=== PATIENT | female | born 1980 | race Caucasian/White ===

== ENCOUNTER → 2016-09-14 | Outpatient (CLI) | payer OTHER ==
[~2016-09-14] MED LIST: AMIT10TA6 PO; ASPI81TA28 PO; B-CO1TAB29 PO; CETI10TA84 PO; COCO1OIL2 PO; COLC0.6T54 PO; GABA1CAP4 PO; METO25TA56 PO; OMEG1CAP81 PO
[2016-09-14 18:19] LABS: BASO % 0.3 %; BASO ABS # 0.02 K/uL (0-0.2); COMPLETE YES; HEMATOCRIT 36.9 % (37-47); IG% 0.5 %; LYMPH % 37.5 %; LYMPH ABS # 2.47 K/uL (1.2-3.4); MEAN CORPUSCULAR HEMOGLOBIN 31.7 pg (25-34); MEAN CORPUSCULAR HGB CONC 35.2 g/dl (32-36); MEAN PLATELET VOLUME 9.3 fL (7.4-10.4); MONO % 9.1 %; NEUT % 50.6 %; PLATELET COUNT 306 K/uL (130-400); WHITE BLOOD COUNT 6.59 K/uL (4.8-10.8)
[2016-09-14 18:46] LABS: THYROID STIMULATING HORMONE 0.985 uIu/ml (0.300-4.500)
== END | disposition home or self-care (01) ==
LOC: C.LAB 17:58
PROVIDERS: ATTEND Family Medicine
DX: R61 Generalized hyperhidrosis (principal)

== ENCOUNTER 2017-04-17 08:06 | Emergency (ER) | payer OTHER ==
[~2017-04-17] VITALS: Ht 165.1 cm; Wt 90.1 kg
[~2017-04-17 08:06] MED LIST changes: -ASPI81TA28 PO
[2017-04-17 08:14] VITALS: BP 135/92; PULSE 82; TEMP 36.6; O2SAT 98; Ht 165.1 cm; Wt 90.1 kg
[2017-04-17] MEDS ORDERED: ASPI81TA28 PO (08:41)
--- NOTE | 2017-04-17 08:55 | EMERGENCY ROOM VISIT NOTE ---
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 Patient reports that she was checking a needle box, when she was splashed by fluid from IV tubing. Source patient is unknown, patient has no idea what could have been in the tubing or in the fluid. Fluid splashed on her lips, and she believes in her eyes and generally on her face. Her face is intact, without any open wounds. She cleansed her mouth with rubbing alcohol, and rinsed her eyes with saline. 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 Patient has been vaccinated against hepatitis B and is immune. Her tetanus is current, however she did have a generalized particle rash after receiving her most recent tetanus vaccination. Patient has had a work-related needlestick injury in the past. Review of Systems: Review of systems as per HPI. All other systems reviewed were negative. At least 6 systems reviewed. Past Medical History: Electronic medical records are reviewed and summarized as above/below. See Problem List. Social History: and lives at home with her family. Employed as an RN at our facility. Never smoker. Physical Examination: Vital signs reviewed as per nursing notes. GENERAL: Patient is a well-appearing 36-year-old white female who is awake and alert and in no acute distress. EYES: Pupils equal, round, reactive to light. EOMs intact without nystagmus. Sclera are anicteric. INTEGUMENTARY: No lesions or rash, normal skin turgor. NEUROLOGICAL: Alert, oriented, and cooperative. Sensation and strength grossly intact. ED Course Patient was seen and examined as above. She sustained a splash injury to the face including potentially eyes and mouth (mucous membranes) with an unknown fluid. Initial cleansing management was appropriate. She has no eye complaints presently. Informed consent for HIV and post exposure testing was obtained, and consents and all other paperwork were completed. The patient had no questions, and was comfortable with the treatment plan, and was instructed to follow up with [facility] for review of her laboratory results. Exposure does not indicate post exposure prophylaxis initiation. Problem List Medical Problems: (1) Anticoagulated by anticoagulation treatment Status: Resolved (2) Bronchitis Status: Resolved (3) Calf pain Status: Resolved (4) Chest pain Status: Resolved (5) Chest pain Status: Resolved (6) Chest pain Status: Resolved (7) Chest pain Status: Resolved (8) Chest pain Status: Resolved (9) Chest pain Status: Resolved (10) Chest pain on exertion Status: Resolved (11) Diabetes Status: Resolved (12) Elevated random blood glucose level Status: Resolved (13) Endometriosis Nos Status: Chronic (14) Flank pain Status: Resolved (15) Flank pain Status: Resolved (16) Flank pain Status: Resolved (17) Gestational diabetes Status: Resolved (18) H/O pulmonary embolus during Status: Resolved (19) Headache in Status: Resolved (20) History of pulmonary embolism Status: Chronic (21) Hydronephrosis Status: Resolved (22) Interstitial cystitis Status: Chronic (23) Interstitial cystitis Status: Chronic (24) Mesenteric adenitis Status: Resolved (25) Pericardial effusion Status: Resolved (26) Pleuritic chest pain Status: Resolved (27) Status: Resolved (28) Status: Resolved (29) with hydronephrosis Status: Resolved (30) Pulmonary embolism Status: Resolved (31) Pulmonary embolism Status: Resolved (32) Pulmonary embolism complicating Status: Resolved (33) Pulmonary embolism complicating Status: Resolved (34) Pyelonephritis Status: Resolved (35) Respiratory distress Status: Resolved (36) Shortness of breath Status: Resolved (37) Shortness of breath Status: Resolved (38) SOB (shortness of breath) Status: Resolved (39) Spontaneous rupture of amniotic membranes Status: Resolved (40) Spontaneous rupture of amniotic membranes Status: Resolved (41) Symptoms involving urinary system Status: Resolved (42) Symptoms involving urinary system Status: Resolved (43) UTI (lower urinary tract infection) Status: Resolved (44) UTI (lower urinary tract infection) Status: Resolved (45) UTI (urinary tract infection) Status: Resolved Surgical Problems: (1) H/O nephrostomy Status: Resolved (2) History of cholecystectomy Status: Resolved (3) History of tonsillectomy Status: Resolved (4) Hx of cholecystectomy Status: Resolved (5) Hx of cystoscopy Status: Resolved (6) Hx of nephrostomy Status: Resolved (7) Hx of tonsillectomy Status: Resolved Current/Historical Medications Scheduled Amitriptyline Hcl (Elavil), 20 TAB PO HS Aspirin (Aspirin Ec), 81 MG PO DAILY B-Complex Vitamins (Vitamin B-Complex), 1 TAB PO DAILY Cetirizine (Zyrtec), 10 MG PO DAILY Colchicine (Colchicine), 0.6 MG PO BID Gabapentin (Gabapentin), 300 MG PO QID Metoprolol Tartrate (Lopressor) (Lopressor), 12.5 MG PO DAILY Allergies Coded Allergies: Tetanus Toxoid (Verified Allergy, Intermediate, RASH X 4 WEEKS, 04/17/17) Vital Signs Date Time Temp Pulse Resp B/P (MAP) Pulse Ox O2 Delivery O2 Flow Rate FiO2 04/17/17 08:14 36.6 82 18 135/92 98 Room Air Departure Information Impression Primary Impression: Exposure to potentially hazardous body fluids Additional Impression: Work related injury Referrals No Doctor, Assigned (PCP) Patient Instructions My [facility] Additional Instructions Follow up with Employee Health for results of your blood work, and any follow up testing as indicated. Problem Qualifiers
== END 2017-04-17 09:04 | disposition home or self-care (01) ==
LOC: C.EDB 08:08 → C.EDA 09:04
DX: Z77.21 Contact with and (suspected) exposure to potentially hazardous body fluids (principal); Z92.89 Personal history of other medical treatment; Y99.0 Civilian activity done for income or pay; E11.9 Type 2 diabetes mellitus without complications; Z86.711 Personal history of pulmonary embolism; Z87.440 Personal history of urinary (tract) infections; Z90.49 Acquired absence of other specified parts of digestive tract; Z98.890 Other specified postprocedural states; Z88.8 Allergy status to other drugs, medicaments and biological substances

== ENCOUNTER 2017-05-10 11:27 | Emergency (ER) | payer OTHER ==
[~2017-05-10] VITALS: Ht 165.1 cm; Wt 91.2 kg
[~2017-05-10 11:27] MED LIST changes: +ASPI81TA28 PO; -COCO1OIL2 PO; -OMEG1CAP81 PO
[2017-05-10 11:37] VITALS: TEMP 36.9; Ht 165.1 cm; Wt 91.2 kg
[2017-05-10 12:23] LABS: MANUAL MICROSCOPIC REQUIRED? YES; REVIEW REQ? NO; SULFASALICYLIC ACID NEG (NEG); URINE APPEARANCE CLEAR (CLEAR); URINE COLOR GREEN; URINE SPECIFIC GRAVITY 1.015 (1.000-1.030)
[2017-05-10] MEDS ORDERED: TPRSR/25 PO (12:23)
[2017-05-10] MEDS ORDERED: DULO60CA44 PO (12:23)
[2017-05-10] MEDS ORDERED: MULT-506 PO (12:23)
[2017-05-10 12:28] LABS: URINE BACTERIA NEG (NEG); URINE RBC 0-4 /hpf (0-4); ZZUR CULT IF INDIC CLEAN CATCH NO
[2017-05-10] MEDS ORDERED: KETOROLAC TROMETHAMINE 30 MG/ML VIAL IV STA (12:28)
[2017-05-10] MEDS ORDERED: SODIUM CHLORIDE 0.9% 1000ML 1,000 ML IV ONE (12:28)
[2017-05-10] MEDS ORDERED: ONDANSETRON INJ 2 MG/ML 2 ML VIAL IV STA (12:28)
[2017-05-10] MEDS ORDERED: SODIUM CHLORIDE 0.9% 1000ML 1,000 ML IV STA (12:28)
[2017-05-10 12:57] LABS: BASO % 0.4 %; BASO ABS # 0.03 K/uL (0-0.2); COMPLETE YES; EOS % 1.6 %; HEMATOCRIT 40.6 % (37-47); IG% 0.5 %; LYMPH ABS # 2.23 K/uL (1.2-3.4); MEAN CELL VOLUME 91.4 fL (80-100); MEAN CORPUSCULAR HEMOGLOBIN 31.5 pg (25-34); MEAN CORPUSCULAR HGB CONC 34.5 g/dl (32-36); MEAN PLATELET VOLUME 9.3 fL (7.4-10.4); MONO % 7.4 %; NEUT % 60.1 %; PLATELET COUNT 298 K/uL (130-400); RED BLOOD COUNT 4.44 M/uL (4.2-5.4); WHITE BLOOD COUNT 7.44 K/uL (4.8-10.8)
[2017-05-10 13:16] LABS: PREG INTERNAL NEGATIVE QC NEG CLEAR BACKGROUND; PREG INTERNAL POSITIVE QC POS CONTROL LINE
[2017-05-10 13:21] LABS: BUN/CREATININE RATIO 11.4 (10-20); CALCIUM 9.2 mg/dl (8.5-10.1); CREATININE 0.82 mg/dl (0.60-1.20); POTASSIUM 4.2 mmol/L (3.5-5.1)
[2017-05-10 13:23] LABS: ALB/GLOB RATIO 1.3 (0.9-2)
--- NOTE | 2017-05-10 14:31 | DIAGNOSTIC IMAGING REPORT ---
ABD/PELVIS WITHOUT FOR STONE CLINICAL HISTORY: 36 years-old Female presenting with eval for stone, appy. TECHNIQUE: Multidetector CT of the abdomen and pelvis was performed without the use of intravenous contrast. IV contrast: None. A dose lowering technique was used consistent with the principles of ALARA (as low as reasonably achievable). COMPARISON: 09/09/2015. CT DOSE (mGy.cm): The estimated cumulative dose is 1206.34 mGy.cm. FINDINGS: Talent Development Manager topogram: Cholecystectomy clips noted. Lung bases: Minimal dependent changes likely atelectasis. Normal heart size. No pericardial or pleural effusion. Liver: Normal morphology. Normal density. Biliary: No intrahepatic or extrahepatic biliary ductal dilatation. Gallbladder surgically absent. Pancreas: Normal noncontrast appearance. Spleen: Normal noncontrast appearance. Adrenal glands: Normal noncontrast appearance. Kidneys and ureters: Normal noncontrast appearance. No hydronephrosis. Bladder: Normal. Pelvic organs: Uterus and ovaries normal. Prominent right ovary likely within the range of normal. Bowel: Moderate stool burden throughout normal caliber colon. No bowel obstruction. Normal appendix. Peritoneal cavity: No free fluid or intraperitoneal gas. Lymph nodes: No gross lymphadenopathy allowing for noncontrast technique. Vasculature: Normal noncontrast appearance. Abdominal wall: Small fat-containing umbilical hernia. Musculoskeletal: Normal. IMPRESSION: 1. No nephrolithiasis. No hydronephrosis. 2. No appendicitis. 3. Prominent right ovary likely within the range of normal. If there is continuing right lower quadrant tenderness or clinical concern for ovarian pathology, pelvic ultrasound is recommended. Electronically signed by: Maulik Esquivel M.D. 05/10/2017 2:29 PM Dictated Date/Time: 05/10/2017 2:24 PM
[2017-05-10] MEDS ORDERED: SULF800T23 PO (15:02)
[2017-05-10] MEDS ORDERED: OXYCODONE IR HOME PACK PO ONE (15:15)
[2017-05-10] MEDS ORDERED: ONDANSETRON HOME PACK 4MG OD TAB PO ONE (15:15)
[2017-05-10 15:20] VITALS: BP 133/94; PULSE 86; O2SAT 98
--- NOTE | 2017-05-10 15:28 | EMERGENCY ROOM VISIT NOTE ---
History Report prepared by Lisa: Marion Allred Under the Supervision of: Dr. Minor Acosta M.D. First contact with patient: 12:21 Chief Complaint: ABDOMINAL PAIN Stated Complaint: ABD PAIN Nursing Triage Summary: pt reports abdominal pain that started 1 day ago that radiates to RLQ and umbilical, reports nausea , denies constipation or vomitting History of Present Illness The patient is a 36 year old female who presents to the Emergency Room with complaints of constant right sided abdominal pain beginning yesterday. The patient states that she thought that the pain may be a UTI and notes that she drank lots of fluid yesterday and took 2 Bactrim that she had at home. She reports that she has taken Tylenol and Ibuprofen. The patient complains of boating, gassiness, nausea, shoulder aches, leg aches, and diaphoresis. She denies any vomiting, chest pain, and fever. She states that she is not on Coumadin and her last bowel movement was yesterday and normal. She reports a history of nephrostomy tube with first baby, cholecystectomy, and PE. Source of History: patient Onset: yesterday Position: abdomen Quality: other (bloated) Timing: constant Associated Symptoms: + diaphoresis, + nausea, No fevers, No chest pain, No vomiting Note: The patient complains of boating, gassiness, shoulder aches, leg aches. Review of Systems See HPI for pertinent positives & negatives. A total of 10 systems reviewed and were otherwise negative. Past Medical & Surgical Medical Problems: (1) Anticoagulated by anticoagulation treatment (2) Bronchitis (3) Calf pain (4) Chest pain (5) Chest pain (6) Chest pain (7) Chest pain (8) Chest pain (9) Chest pain (10) Chest pain on exertion (11) Diabetes (12) Elevated random blood glucose level (13) Endometriosis Nos (14) Flank pain (15) Flank pain (16) Flank pain (17) Gestational diabetes (18) H/O pulmonary embolus during (19) Headache in (20) History of pulmonary embolism (21) Hydronephrosis (22) Interstitial cystitis (23) Interstitial cystitis (24) Mesenteric adenitis (25) Pericardial effusion (26) Pleuritic chest pain (27) (28) (29) with hydronephrosis (30) Pulmonary embolism (31) Pulmonary embolism (32) Pulmonary embolism complicating (33) Pulmonary embolism complicating (34) Pyelonephritis (35) Respiratory distress (36) Shortness of breath (37) Shortness of breath (38) SOB (shortness of breath) (39) Spontaneous rupture of amniotic membranes (40) Spontaneous rupture of amniotic membranes (41) Symptoms involving urinary system (42) Symptoms involving urinary system (43) UTI (lower urinary tract infection) (44) UTI (lower urinary tract infection) (45) UTI (urinary tract infection) Surgical Problems: (1) H/O nephrostomy (2) History of cholecystectomy (3) History of tonsillectomy (4) Hx of cholecystectomy (5) Hx of cystoscopy (6) Hx of nephrostomy (7) Hx of tonsillectomy Old medical records were reviewed. Nurse's notes were reviewed and I agree with. Family History Diabetes mellitus Gallbladder disease Heart disease Hypertension Social History Smoking Status: Current Some Day Smoker Alcohol Use: none Drug Use: none Marital Status: Housing Status: lives with family Occupation Status: employed Current/Historical Medications Scheduled Amitriptyline Hcl (Elavil), 20 TAB PO HS Aspirin (Aspirin Ec), 81 MG PO DAILY B-Complex Vitamins (Vitamin B-Complex), 1 TAB PO DAILY Cetirizine (Zyrtec), 10 MG PO DAILY Colchicine (Colchicine), 0.6 MG PO BID Duloxetine Hcl (Cymbalta), 60 MG PO QAM Gabapentin (Gabapentin), 300 MG PO TID Metoprolol Succinate (Metoprolol Succinate ER), 12.5 MG PO QAM Multivitamin (Multivitamin), 1 TAB PO DAILY Sulfa/Trimethoprim (Bactrim Ds 800MG/160MG), 1 TAB PO BID Allergies Coded Allergies: Tetanus Toxoid (Verified Allergy, Intermediate, RASH X 4 WEEKS, 05/10/17) Physical Exam Vital Signs Date Time Temp Pulse Resp B/P (MAP) Pulse Ox O2 Delivery O2 Flow Rate FiO2 05/10/17 15:20 86 18 133/94 98 05/10/17 13:24 90 18 124/83 98 Room Air 05/10/17 11:37 36.9 116 20 134/84 97 Room Air Physical Exam General: Uncomfortable appearing middle aged female in no acute distress. Complaining of abdominal pain and cramping. HEENT: Normal cephalic atraumatic. Pupils are equal round and reactive to light. Extraocular movements are intact. Oropharynx is pink with moist mucous membranes. No swelling of the mouth lips or tongue. Neck: Supple with a midline trachea. No meningeal signs or stiffness, no JVD or bruits. No Stridor. Chest: Clear to auscultation bilaterally. No wheezes or rhonchi. No increased work of breathing. Heart: regular rate and rhythm. Abdomen: Soft nontender, nondistended without rebound guarding or rigidity. Extremities: No cyanosis clubbing or edema. No calf tenderness or assymetry Spine/Back. Non tender to palpation. No CVA tenderness Skin: Good turgor without rashes. Neurologic exam: Cranial nerves two through 12 are intact. Motor and sensation are intact and symmetrical throughout. Medical Decision & Procedures ER Provider Diagnostic Interpretation: Radiology results as stated below per my review and radiologist interpretation: ABD/PELVIS WITHOUT FOR STONE FINDINGS: Headlight Adjuster topogram: Cholecystectomy clips noted. Lung bases: Minimal dependent changes likely atelectasis. Normal heart size. No pericardial or pleural effusion. Liver: Normal morphology. Normal density. Biliary: No intrahepatic or extrahepatic biliary ductal dilatation. Gallbladder surgically absent. Pancreas: Normal noncontrast appearance. Spleen: Normal noncontrast appearance. Adrenal glands: Normal noncontrast appearance. Kidneys and ureters: Normal noncontrast appearance. No hydronephrosis. Bladder: Normal. Pelvic organs: Uterus and ovaries normal. Prominent right ovary likely within the range of normal. Bowel: Moderate stool burden throughout normal caliber colon. No bowel obstruction. Normal appendix. Peritoneal cavity: No free fluid or intraperitoneal gas. Lymph nodes: No gross lymphadenopathy allowing for noncontrast technique. Vasculature: Normal noncontrast appearance. Abdominal wall: Small fat-containing umbilical hernia. Musculoskeletal: Normal. IMPRESSION: 1. No nephrolithiasis. No hydronephrosis. 2. No appendicitis. 3. Prominent right ovary likely within the range of normal. If there is continuing right lower quadrant tenderness or clinical concern for ovarian pathology, pelvic ultrasound is recommended. Electronically signed by: Maulik Esquivel M.D. 05/10/2017 2:29 PM Dictated Date/Time: 05/10/2017 2:24 PM Laboratory Results 05/10/17 12:35 Red Blood Count 4.44, Mean Corpuscular Volume 91.4, Mean Corpuscular Hemoglobin 31.5, Mean Corpuscular Hemoglobin Concent 34.5, Mean Platelet Volume 9.3, Neutrophils (%) (Auto) 60.1, Lymphocytes (%) (Auto) 30.0, Monocytes (%) (Auto) 7.4, Eosinophils (%) (Auto) 1.6, Basophils (%) (Auto) 0.4, Neutrophils # (Auto) 4.47, Lymphocytes # (Auto) 2.23, Monocytes # (Auto) 0.55, Eosinophils # (Auto) 0.12, Basophils # (Auto) 0.03 05/10/17 12:35 Test 05/10/17 11:47 05/10/17 12:35 Urine Color GREEN Urine Appearance CLEAR (CLEAR) Urine pH (4.5-7.5) Urine Specific [place] 1.015 (1.000-1.030) Urine Protein NEG (NEG) Urine Glucose (UA) (NEG) Urine Ketones (NEG) Urine Occult Blood (NEG) Urine Nitrite (NEG) Urine Bilirubin (NEG) Urine Urobilinogen (NEG) Urine Leukocyte Esterase (NEG) Urine RBC 0-4 /hpf (0-4) Urine WBC 1-5 /hpf (0-5) Urine Epithelial Cells >30 /lpf (0-5) Urine Bacteria NEG (NEG) White Blood Count 7.44 K/uL (4.8-10.8) Red Blood Count 4.44 M/uL (4.2-5.4) Hemoglobin 14.0 g/dL (12.0-16.0) Hematocrit 40.6 % (37-47) Mean Corpuscular Volume 91.4 fL (80-100) Mean Corpuscular Hemoglobin 31.5 pg (25-34) Mean Corpuscular Hemoglobin Concent 34.5 g/dl (32-36) Platelet Count 298 K/uL (130-400) Mean Platelet Volume 9.3 fL (7.4-10.4) Neutrophils (%) (Auto) 60.1 % Lymphocytes (%) (Auto) 30.0 % Monocytes (%) (Auto) 7.4 % Eosinophils (%) (Auto) 1.6 % Basophils (%) (Auto) 0.4 % Neutrophils # (Auto) 4.47 K/uL (1.4-6.5) Lymphocytes # (Auto) 2.23 K/uL (1.2-3.4) Monocytes # (Auto) 0.55 K/uL (0.11-0.59) Eosinophils # (Auto) 0.12 K/uL (0-0.5) Basophils # (Auto) 0.03 K/uL (0-0.2) RDW Standard Deviation 43.2 fL (36.4-46.3) RDW Coefficient of Variation 13.0 % (11.5-14.5) Immature Granulocyte % (Auto) 0.5 % Immature Granulocyte # (Auto) 0.04 K/uL (0.00-0.02) Anion Gap 7.0 mmol/L (3-11) Est Creatinine Clear Calc Drug Dose 107.9 ml/min Estimated GFR () 108.2 Estimated GFR (Non- 93.4 BUN/Creatinine Ratio 11.4 (10-20) Calcium Level 9.2 mg/dl (8.5-10.1) Total Bilirubin 0.2 mg/dl (0.2-1) Aspartate Amino Transf (AST/SGOT) 21 U/L (15-37) Alanine Aminotransferase (ALT/SGPT) 37 U/L (12-78) Alkaline Phosphatase 73 U/L (45-117) Total Protein 7.4 gm/dl (6.4-8.2) Albumin 4.2 gm/dl (3.4-5.0) Globulin 3.2 gm/dl (2.5-4.0) Albumin/Globulin Ratio 1.3 (0.9-2) Lipase 194 U/L (73-393) Human Chorionic Gonadotropin, Qual NEG (NEG) Laboratory studies as stated above per my review. Medications Administered Medications (Trade) Dose Ordered Sig/Neptali Route Start Time Stop Time Status Last Admin Dose Admin Ondansetron HCl (Zofran Inj) 4 mg NOW STAT IV 05/10/17 12:28 05/10/17 12:29 DC 05/10/17 12:43 4 MG Sodium Chloride 1,000 ml @ 999 mls/hr Q1H1M STAT IV 05/10/17 12:28 05/10/17 13:28 DC 05/10/17 12:43 999 MLS/HR Sodium Chloride 1,000 ml @ 200 mls/hr Q5H ONCE IV 05/10/17 12:28 05/10/17 17:27 05/10/17 12:28 200 MLS/HR Ketorolac Tromethamine (Toradol Inj) 30 mg NOW STAT IV 05/10/17 12:28 05/10/17 12:29 DC 05/10/17 12:43 30 MG Oxycodone HCl (Roxicodone Immediate Rel 5MG Home Pack) 1 homepack UD ONCE PO 05/10/17 15:15 05/10/17 15:16 DC 05/10/17 15:16 1 HOMEPACK Ondansetron HCl (ZOFRAN ODT 4MG Home Pack) 1 homepack UD ONCE PO 05/10/17 15:15 05/10/17 15:16 DC 05/10/17 15:16 1 HOMEPACK ED Course 1221: Past medical records reviewed. The patient was evaluated in room B3, and a complete history and physical examination were performed. 1228: Toradol Inj 30mg IV, Sodium Chloride 1000 ml @ 200 mls/hr IV, Sodium Chloride 1000 ml @ 999 mls/hr IV, Zofran Inj 4mg IV. 1453: I reevaluated and updated the patient. 1501: Upon reevaluation, the patient is doing well. I discussed the results and treatment plan with the patient. She verbalized agreement of the treatment plan. The patient was discharged home. Medical Decision Differentials include, but are not limited to; UTI, bowel obstruction, constipation, appendicitis, kidney stone, electrolyte or metabolic abnormality. This patient comes in as described above. She was placed in room B3. She comes in with lower abdominal pain as crampy . Also seems more so on her right side and also the right back. She said problems was interstitial cystitis before. She denies any history of kidney stone. She has had no chest pain or shortness of breath or pleurisy. No trauma or injury. No vaginal bleeding or discharge. IV access established was hydrated with IV normal saline. She was given Toradol 30 mg IV. She is feeling better after this and still did have some pain. I did offer to give her further medication but she declines that she has to drive home. Her white count is not elevated. She's no fever. She is stable vital signs. She has no acute electrode or metabolic abnormalities. Blood work is unremarkable and does not suggest liver, gallbladder, or pancreas disease. A nonenhanced CAT scan of the abdomen shows no acute intra-abdominal findings. She has normal appendix. The right ovary is within normal limits but prominent. There is no abnormality seen. I offered a pelvic ultrasound but she declined. She seems to be tender slightly higher than that as well. She is not . She desires to go home and is given a follow-up with her regular doctor. This may be exacerbation of her interstitial cystitis. I gave her home pack of both OxyIR and Zosyn. She has taken 3 doses of Bactrim and it is possible that she is a partially treated UTI and I will have her continue this for another 7 days twice daily give a prescription for this. She is to return if: increasing pain, fever or chills, worsening sof ymptoms, not tolerating fluids, any new problems or concerns. She is happy with plan and discharged to home. Medication Reconcilliation Current Medication List: was personally reviewed by me Blood Pressure Screening Patient's blood pressure: Elevated blood pressure Blood pressure disposition: Elevated BP felt to be situational Impression Primary Impression: Right flank pain Additional Impression: Lower abdominal pain Scribe Attestation The scribe's documentation has been prepared under my direction and personally reviewed by me in its entirety. I confirm that the note above accurately reflects all work, treatment, procedures, and medical decision making performed by me. Departure Information Dispostion Home / Self-Care Prescriptions Sulfa/Trimethoprim (Bactrim Ds 800MG/160MG) Tab 1 TAB PO BID, #14 TAB Prov: Minor Acosta M.D. 05/10/17 Referrals No Doctor, Assigned (PCP) Forms Call Back Authorization, HOME CARE DOCUMENTATION FORM, IMPORTANT VISIT INFORMATION Patient Instructions My [facility] [address] [place] Additional Instructions Rest Drink plenty of fluids REturn if: worsening of symptoms, increasing pain, fever, not tolerating fluids , any new problems or concerns Use OxyIR 5 mg, 1-2 pills every 6 hours as needed OxyIR may make you drowsy and do not take before drinking, driving, working May use Zofran if fever nausea Finish your Bactrim prescription double-strand twice a day for 7 days Follow-up with your doctor tomorrow for recheck Problem Qualifiers
== END 2017-05-10 15:21 | disposition home or self-care (01) ==
LOC: C.EDB 11:28
DX: R10.30 Lower abdominal pain, unspecified (principal); E11.9 Type 2 diabetes mellitus without complications; I88.0 Nonspecific mesenteric lymphadenitis; F17.200 Nicotine dependence, unspecified, uncomplicated; Z86.711 Personal history of pulmonary embolism; Z87.440 Personal history of urinary (tract) infections; Z90.49 Acquired absence of other specified parts of digestive tract; Z98.890 Other specified postprocedural states; Z79.82 Long term (current) use of aspirin; Z79.899 Other long term (current) drug therapy; Z88.8 Allergy status to other drugs, medicaments and biological substances; Z83.3 Family history of diabetes mellitus; Z83.79 Family history of other diseases of the digestive system; Z82.49 Family history of ischemic heart disease and other diseases of the circulatory system

== ENCOUNTER → 2017-08-20 | Outpatient (CLI) | payer OTHER ==
[~2017-08-20] MED LIST changes: +DULO60CA44 PO; -METO25TA56 PO; +MULT-506 PO; +SULF800T23 PO; +TPRSR/25 PO
--- NOTE | 2017-08-20 09:34 | DIAGNOSTIC IMAGING REPORT ---
MRI LEFT KNEE NO CONTRAST CLINICAL HISTORY: Left knee pain COMPARISON STUDY: No previous studies for comparison. FINDINGS: Imaging was performed in the coronal, sagittal, and axial planes. There are no marrow signal abnormalities to indicate occult fracture or bone bruise. The quadriceps and patellar tendons appear intact. The patellar retinacular structures appear intact. The anterior and posterior cruciate ligaments appear intact. The lateral meniscus appears normal. There is a linear signal within the posterior horn the medial meniscus which appears to reach a meniscal surface on a single image. A tear is suspected. The medial and lateral collateral ligaments appear intact. IMPRESSION: 1. Linear signal within the posterior horn the medial meniscus which appears to reach a meniscal surface on a single image. A posterior horn tear is suspected 2. No evidence of cruciate or collateral ligament disruption. 3. No evidence of lateral meniscal tear. Electronically signed by: John Arroyo M.D. 08/20/2017 9:32 AM Dictated Date/Time: 08/20/2017 9:29 AM
== END | disposition home or self-care (01) ==
LOC: C.MRI 08:34
DX: M25.562 Pain in left knee (principal); R93.7 Abnormal findings on diagnostic imaging of other parts of musculoskeletal system

== ENCOUNTER 2019-11-14 14:26 | Inpatient (IN) ==
[2019-11-14 15:14] LABS: Appearance Urine Cloudy (Clear); Bacteria Urine Automated Negative (Negative); Bilirubin Urine Negative (Negative); Blood Urine Negative (Negative); Color Urine Yellow; Epithelial Cell Urine Auto >30 /lpf (0-5); Glucose Urine UA Negative (Negative); Ketones Urine Negative (Negative); Leukocyte Esterase Urine Trace (Negative); Nitrite Urine Negative (Negative); Protein Urine Negative (Negative); RBC Urine Automated 0-4 /hpf (0-4); Specific Gravity Urine 1.016 (1.000-1.030); Urobilinogen Urine Negative (Negative)
[2019-11-14 15:15] LABS: Basophils # (auto) 0.01 K/uL (0-0.2); Basophils % (auto) 0.1 %; Eosinophils # (auto) 0.04 K/uL (0-0.5); Eosinophils % (auto) 0.5 %; Hemoglobin 14.9 g/dL (12.0-16.0); Immature Granulocytes # (auto) 0.01 K/uL (0.00-0.02); Immature Granulocytes % (auto) 0.1 %; Lymphocytes % (auto) 17.8 %; Mean Corpuscular Hemoglobin 32.3 pg (25-34); Mean Corpuscular Hgb Conc 34.7 g/dL (32-36); Mean Corpuscular Volume 93.1 fL (80-100); Mean Platelet Volume 10.1 fL (7.4-10.4); Monocytes # (auto) 0.53 K/uL (0.11-0.59); Monocytes % (auto) 7.3 %; Neutrophils % (auto) 74.2 %; Platelet Count 292 K/uL (130-400); RDW Coefficient of Variation 13.3 % (11.5-14.5); RDW Standard Deviation 44.8 fL (36.4-46.3); Red Blood Count 4.62 M/uL (4.2-5.4); White Blood Count 7.29 K/uL (4.8-10.8)
[2019-11-14 15:32] LABS: Albumin Level 4.3 gm/dl (3.4-5.0); BUN Creatinine Ratio 10.4 (10-20); Calcium 9.3 mg/dl (8.5-10.1); Creatinine Clr Calc Pharmacy 67.2 ml/min; Est GFR (African American) 69.4; Est GFR (Non-African American) 59.9; Potassium 3.8 mmol/L (3.5-5.1)
[2019-11-14 15:33] LABS: Acetaminophen < 2 ug/ml (10-30); Salicylate 4.3 mg/dl (2.8-20)
[2019-11-14 15:42] LABS: Albumin Globulin Ratio 1.3 (0.9-2); Bilirubin,Total 0.4 mg/dl (0.2-1); Globulin 3.3 gm/dl (2.5-4.0); Thyroid Stimulating Hormone 0.587 uIu/ml (0.300-4.500); Total Protein 7.6 gm/dl (6.4-8.2)
[2019-11-14 15:48] LABS: Amphetamines+Metham, Urine Neg (Neg); Barbiturates, Urine Neg (Neg); Benzodiazepine, Urine Neg (Neg); Cocaine, Urine Neg (Neg); MDMA (Ecstacy), Urine Pos (Neg); Methadone, Urine Neg (Neg); Opiate, Urine Neg (Neg); Phencyclidine, Urine Neg (Neg)
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
[2019-11-14] MEDS: NICOTINE 21 MG/24 HR TDSY TD SCH (17:47)
--- NOTE | 2019-11-14 17:51 | Emergency Department Note ---
ED Visit Note I received signout from Dr. Prado pending evaluation and placement. The patient has had increasing paranoia depression over the last 12 months. Patient did make some suicidal statements to her sister and . Patient is currently voluntary 201. Currently medically clear. Patient was complaining of the headache does have a known history of migraines. Patient requested Imitrex and Motrin which she was given. Patient was subsequently admitted to [facility]. . : Depression Qualifiers: Depression Type: unspecified Qualified Code(s): F32.9 - Major depressive disorder, single episode, unspecified
[2019-11-14] MEDS ORDERED: IBUPROFEN 600 MG TAB PO STA (18:47)
[2019-11-14] MEDS ORDERED: SUMAtriptan succinate 50 MG TAB PO STA (18:47)
[2019-11-14] MEDS ORDERED: SODIUM CHLORIDE 0.65% NA SOLN 45 ML (OCEAN) PRN (21:47)
[2019-11-14] MEDS ORDERED: BISMUTH SUBSALICYLATE PER ML OMNICELL CHARGE PO PRN (21:47)
[2019-11-14] MEDS ORDERED: MAGNESIUM HYDROXIDE SUSP 30 ML UDC PO PRN (21:47)
[2019-11-14] MEDS ORDERED: ACETAMINOPHEN 325 MG TAB PO PRN (21:47)
[2019-11-14] MEDS ORDERED: ALUMINUM/MAGNESIUM SUSP 30 ML UDC PO PRN (21:47)
[2019-11-14] MEDS ORDERED: ONDANSETRON 4 MG OD TAB PO PRN (21:48)
[2019-11-14] MEDS ORDERED: VALACYCLOVIR HCL 500 MG TABLET PO PRN (21:50)
[2019-11-14] MEDS ORDERED: haloperidoL 5 MG TAB PO PRN (21:52)
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
[2019-11-15] MEDS ORDERED: NICOTINE 21 MG/24 HR TDSY TD SCH (09:00)
[2019-11-15] MEDS: NICOTINE 21 MG/24 HR TDSY TD SCH ×2 (09:07→09:11)
[2019-11-15] MEDS: MULTIVITAMIN TAB PO SCH (09:08)
[2019-11-15] MEDS: SUMAtriptan succinate 50 MG TAB PO PRN ×2 (09:08→17:23)
[2019-11-15] MEDS: IBUPROFEN 600 MG TAB PO PRN (09:27)
[2019-11-15] MEDS ORDERED: TOPIRAMATE 100 MG TAB PO SCH (11:15)
[2019-11-15] MEDS: DULOXETINE HCL 30 MG CAP PO SCH (11:41)
[2019-11-15] MEDS: GABAPENTIN 600 MG TAB PO SCH ×2 (11:41→20:22)
[2019-11-15] MEDS: BuPROPion XL 150 MG TABCR PO SCH (11:42)
[2019-11-15] MEDS: PANTOprazole 40 MG TAB PO SCH (11:42)
[2019-11-15] MEDS: PALIPERIDONE 3 MG TABCR PO SCH (12:39)
[2019-11-15] MEDS: TOPIRAMATE 100 MG TAB PO SCH (17:44)
[2019-11-16 07:49] LABS: Glucose Fasting 114 mg/dl (70-99)
[2019-11-16 07:55] LABS: Chol HDL Ratio 4; Cholesterol 123 mg/dl (0-200); HDL Cholesterol 33 mg/dl; LDL Cholesterol Calculated 64 mg/dl; Triglycerides 130 mg/dl (0-150); VLDL Cholesterol 26 mg/dl
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
[2019-11-16] MEDS: NICOTINE 21 MG/24 HR TDSY TD SCH (08:31)
[2019-11-16] MEDS: DULOXETINE HCL 30 MG CAP PO SCH (08:31)
[2019-11-16] MEDS: TOPIRAMATE 100 MG TAB PO SCH ×2 (08:32→17:27)
[2019-11-16] MEDS: PALIPERIDONE 3 MG TABCR PO SCH (08:32)
[2019-11-16] MEDS: BuPROPion XL 150 MG TABCR PO SCH (08:32)
[2019-11-16] MEDS: PANTOprazole 40 MG TAB PO SCH (08:32)
[2019-11-16] MEDS: GABAPENTIN 600 MG TAB PO SCH ×2 (08:32→21:43)
[2019-11-16] MEDS: MULTIVITAMIN TAB PO SCH (08:32)
[2019-11-16] MEDS: IBUPROFEN 600 MG TAB PO PRN (17:29)
[2019-11-17] MEDS: NICOTINE 21 MG/24 HR TDSY TD SCH (08:37)
[2019-11-17] MEDS: DULOXETINE HCL 30 MG CAP PO SCH (08:38)
[2019-11-17] MEDS: PALIPERIDONE 3 MG TABCR PO SCH (08:39)
[2019-11-17] MEDS: TOPIRAMATE 100 MG TAB PO SCH ×2 (08:39→17:35)
[2019-11-17] MEDS: BuPROPion XL 150 MG TABCR PO SCH (08:39)
[2019-11-17] MEDS: MULTIVITAMIN TAB PO SCH (08:39)
[2019-11-17] MEDS: PANTOprazole 40 MG TAB PO SCH (08:39)
[2019-11-17] MEDS: GABAPENTIN 600 MG TAB PO SCH ×2 (08:39→20:57)
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
[2019-11-17 13:05] LABS: MDA negative; MDEA negative; MDMA (Ecstasy) Urine, Confirm negative
[2019-11-17] MEDS ORDERED: PALIPERIDONE PALMITATE 234 MG/1.5 ML SYR IM ONE (14:06)
[2019-11-17] MEDS: IBUPROFEN 600 MG TAB PO PRN (20:57)
[2019-11-18] MEDS: PALIPERIDONE 3 MG TABCR PO SCH (08:31)
[2019-11-18] MEDS: DULOXETINE HCL 30 MG CAP PO SCH (08:31)
[2019-11-18] MEDS: GABAPENTIN 600 MG TAB PO SCH ×2 (08:32→21:21)
[2019-11-18] MEDS: MULTIVITAMIN TAB PO SCH (08:32)
[2019-11-18] MEDS: BuPROPion XL 150 MG TABCR PO SCH (08:32)
[2019-11-18] MEDS: TOPIRAMATE 100 MG TAB PO SCH ×2 (08:32→17:24)
[2019-11-18] MEDS: PANTOprazole 40 MG TAB PO SCH (08:32)
[2019-11-18] MEDS: NICOTINE 21 MG/24 HR TDSY TD SCH (08:36)
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
[2019-11-18] MEDS: IBUPROFEN 600 MG TAB PO PRN (21:21)
[2019-11-19] MEDS: DULOXETINE HCL 30 MG CAP PO SCH (08:52)
[2019-11-19] MEDS: PANTOprazole 40 MG TAB PO SCH (08:53)
[2019-11-19] MEDS: NICOTINE 21 MG/24 HR TDSY TD SCH (08:53)
[2019-11-19] MEDS: PALIPERIDONE 3 MG TABCR PO SCH (08:53)
[2019-11-19] MEDS: MULTIVITAMIN TAB PO SCH (08:53)
[2019-11-19] MEDS: GABAPENTIN 600 MG TAB PO SCH ×2 (08:53→21:08)
[2019-11-19] MEDS: TOPIRAMATE 100 MG TAB PO SCH ×2 (08:53→17:28)
[2019-11-19] MEDS: BuPROPion XL 150 MG TABCR PO SCH (08:54)
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
[2019-11-19] MEDS: IBUPROFEN 600 MG TAB PO PRN (13:20)
[2019-11-20] MEDS: IBUPROFEN 600 MG TAB PO PRN ×2 (06:08→21:17)
[2019-11-20] MEDS: SUMAtriptan succinate 50 MG TAB PO PRN ×2 (06:13→22:31)
[2019-11-20] MEDS: DULOXETINE HCL 30 MG CAP PO SCH (08:28)
[2019-11-20] MEDS: PANTOprazole 40 MG TAB PO SCH (08:29)
[2019-11-20] MEDS: GABAPENTIN 600 MG TAB PO SCH ×2 (08:29→21:17)
[2019-11-20] MEDS: PALIPERIDONE 3 MG TABCR PO SCH (08:29)
[2019-11-20] MEDS: BuPROPion XL 150 MG TABCR PO SCH (08:30)
[2019-11-20] MEDS: MULTIVITAMIN TAB PO SCH (08:30)
[2019-11-20] MEDS: TOPIRAMATE 100 MG TAB PO SCH ×2 (08:30→17:29)
[2019-11-20] MEDS: NICOTINE 21 MG/24 HR TDSY TD SCH (08:31)
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
[2019-11-21] MEDS: MULTIVITAMIN TAB PO SCH (07:55)
[2019-11-21] MEDS: BuPROPion XL 150 MG TABCR PO SCH (07:55)
[2019-11-21] MEDS: PANTOprazole 40 MG TAB PO SCH (07:55)
[2019-11-21] MEDS: DULOXETINE HCL 30 MG CAP PO SCH (07:55)
[2019-11-21] MEDS: TOPIRAMATE 100 MG TAB PO SCH (07:56)
[2019-11-21] MEDS: GABAPENTIN 600 MG TAB PO SCH (07:56)
[2019-11-21] MEDS: NICOTINE 21 MG/24 HR TDSY TD SCH (08:02)
--- NOTE | 2019-11-21 08:24 | Discharge Summary ---
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 Appointment: 12:00 Therapy Appointment Comment: through [employer]. [address], [address] Release of Information: Obtained, Reviewed and Signed Special Effects Technician Name of Special Effects Technician: BAYRON Post Discharge Appointments Primary Care Physician Name Of Family Doctor: Dawson Jarqiun Primary Care Provider Appointment Comment: Please follow up as needed Primary Care Release of Information: Obtained, Reviewed and Signed Neurologist Name of Neurologist: Dawson - Dr. Gallardo Neurologist's Date of Appointment with Neurologist: 03/15/20 Time of Appointment with Neurologist: 10am Neurology Appointment Comment: [address] [facility] [place] [address] Release of Information for Neurologist: Obtained, Reviewed and Signed Smoking Cessation Counseling Tobacco Cessation Medication Prescribed at Discharge: Offered & Prescribed (Follow-up with outpatient psychiatrist as below. 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 Follow through with your scheduled aftercare appointments. If unable to keep an appointment, please call to reschedule. 2. Take your medication only as prescribed. Medication should not be changed or stopped without the approval of your doctor. In the event of worsening symptoms or concerns about side effects, contact your doctor immediately. 3. Utilize new healthy coping skills, anger management skills, and stress management skills learned during your hospitalization. Journal feelings and process them with a support person. Identify stressors or situations that may result in relapse, deterioration or inappropriate behaviors and develop a plan to deal with those issues. 4. If your coping skills are ineffective and you are in crisis, contact your outpatient providers for direction. If unable to reach your providers, please call the CAN HELP LINE AT or go to the closest Emergency Room. 5. Avoid alcohol and un-prescribed drugs. 6. You have been provided with the Mental Health Advance Directives Pamphlet for your review. AFTERCARE APPOINTMENTS: * Please call your insurance company prior to your scheduled appointment to confirm your aftercare providers are covered. Take your insurance information to your appointments. WHO TO CALL AND WHEN: Medical Emergencies: For questions or emergencies related to your hospital stay, please contact the Inpatient Behavioral Health Unit at [phone]. A military education coordinator is on-call 23/02 for the Behavioral Health Unit for emergencies At any time you feel your situation is an emergency, you may also call 911 immediately. Your Doctors Instructions noted above were prepared by provider Ruby Baker MD. Pending Studies at Discharge: No Stand-Alone Forms: My Plan B Funding, Smoking Cessation, Suicide Prevention Resources Medications and DC Order Prescriptions: New nicotine [Nicoderm CQ] 21 mg/24 hr Patch 24 Hour 21 mg transdermal QAM Qty: 7 RF: 0 Invega Sustenna 117 mg/0.75 mL syringe 117 mg IM Q4WK Qty: 0.75 RF: 0 Continued Gabapentin 300 MG capsule 600 mg PO BID Qty: 0 RF: 0 DULOXETINE HCL (CYMBALTA) 60 MG capsule 90 mg PO QAM Qty: 0 RF: 0 Multivitamin tablet 1 tab PO DAILY Qty: 0 RF: 0 valacyclovir 1 gram tablet 2,000 mg PO ONCE PRN (Reason: Cold Sores) RF: 0 ondansetron HCl 4 mg Tablet 4 mg PO Q6 PRN (Reason: Nausea) RF: 0 sumatriptan succinate 50 mg tablet 50 mg PO DIRECTED PRN (Reason: Migraine Headache) RF: 0 pantoprazole 40 mg tablet,delayed release (DR/EC) 40 mg PO QAM RF: 0 bupropion HCl 150 mg tablet extended release 24 hr 150 mg PO QAM RF: 0 topiramate 100 mg tablet 100 mg PO BID RF: 0 Discontinued haloperidol 1 mg tablet 2 mg PO BID RF: 0 Discharge Orders: Discharge Order (Routine); Ordered 11/21/19 Ordered By: Ruby Baker Admission Data Admit Date/Time: 11/14/19 20:43 Attending Provider: Ruby Baker Admit Provider: Brett Gonzalez Primary Care Provider: Maulik Allen Other Interventions: Discharge Summary Assessment (RN) Last Done: 11/20/19 10:31 PSY Interdisciplinary Discharge Planning Last Done: 11/21/19 07:32 Coding Level of Care Code 88767 D/C day mgmt > 30 min Diagnoses Suicidal ideation R45.851 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
[2019-11-21] MEDS ORDERED: PALIPERIDONE 3 MG TABCR PO ONE (09:00)
[2019-11-21] MEDS ORDERED: PALIPERIDONE PALMITATE 156 MG/ML SYR IM ONE (09:43)
== END 2019-11-21 10:10 | disposition home or self-care (01) | DRG 885 ==
LOC: ED 14:26 → 3S 20:43